=== PATIENT | female | born 1950 | race Caucasian/White ===

== ENCOUNTER → 2024-10-21 | Outpatient (CLI) | payer MEDICARE, SELFPAY ==
[2024-10-21 09:10] LABS: Collection Type, Urine Clean Catch
[2024-10-21 09:33] LABS: Basophils % (Auto) 1 % (0-2.5); Eosinophils # (Auto) 0.3 Thou/mm3 (0.0-0.5); Eosinophils % (Auto) 4 % (0-10); Hematocrit 36.7 % (36.0-46.0); Hemoglobin 11.7 g/dL (12.0-16.0); Immature Granulocytes % (Auto) 0 % (0-0); Immature Granulocytes Auto 0.02 Thou/mm3 (0.00-0.00); Lymphocytes # (Auto) 1.7 Thou/mm3 (1.0-4.8); Lymphocytes % (Auto) 24 % (10-50); Mean Corpuscular HGB Conc 31.9 g/dl (31.0-37.0); Mean Corpuscular Volume 91 fL (80-100); Monocytes # (Auto) 0.5 Thou/mm3 (0.0-0.8); Monocytes % (Auto) 8 % (0-12); Neutrophils # (Auto) 4.3 Thou/mm3 (1.8-7.7); Neutrophils % (Auto) 63 % (37-80); Nucleated Red Blood Cell % 0 /100 WBC (0); Platelet Count 226 Thou/mm3 (140-440); Red Blood Count 4.03 Miln/mm3 (4.00-5.20); White Blood Count 6.9 Thou/mm3 (3.6-11.0)
[2024-10-21 09:49] LABS: Vitamin B12 391 pg/mL (211-911); Vitamin D 25 Hydroxy Total 61.6 ng/mL (7.3-40.2)
[2024-10-21 09:56] LABS: Alanine Aminotransferase 17 U/L (10-49); Albumin, Serum 4.4 gm/dL (3.4-4.8); Alkaline Phosphatase 100 U/L (46-116); Anion Gap 9 (7-16); Aspartate Amino Transferase 15 U/L (0-34); BUN/Creatinine Ratio 30 Ratio (12-20); Bilirubin,Total 0.3 mg/dL (0.3-1.2); Blood Urea Nitrogen 33 mg/dL (9-23); Calcium 9.8 mg/dL (8.3-10.6); Calcium (Corrected) 9.8 mg/dL (8.5-10.1); Carbon Dioxide 25.7 mMol/L (20.0-31.0); Cardiac Risk Estimate 3.5 RATIO (3.7-5.6); Chloride 105 mMol/L (98-107); Cholesterol 163 mg/dL (132-200); Creatinine (Component) 1.1 mg/dL (0.6-1.3); Globulin 2.2 gm/dL (2.3-3.5); Glucose 97 mg/dL (74-106); HDL Cholesterol 47 mg/dL (40-60); LDL Cholesterol,Calculated 83 mg/dL (0-130); Osmolality,Calculated 286 (275-295); Potassium 4.6 mMol/L (3.4-5.1); Sodium 140 mMol/L (136-145); Thyroid Stimulating Hormone 3.29 uIU/mL (0.55-4.78); Total Protein 6.6 gm/dL (5.7-8.2); Triglycerides 163 mg/dL (30-150); eGFR 52 See Note
[2024-10-21 10:09] LABS: Bacteria,Urine 2+; Bilirubin,Urine Negative (Negative); Blood,Urine Negative (Negative); Clarity,Urine Clear (Clear/Hazy); Color,Urine Lt-Yellow (Lt Yel-Yel); Glucose, Urine Negative (Negative); Hyaline Casts,Urine < 1 /hpf (0-1); Ketones,Urine Negative (Negative); Leukocyte Esterase,Urine Positive (Negative); Nitrite,Urine Negative (Negative); Protein,Urine Negative (Neg - Trace); RBC,Urine 2 /hpf (0-3); Specific Gravity,Urine 1.027 (1.001-1.035); Squamous Epithelial Cell,Urine 4 /hpf (0-5); Urobilinogen,Urine Negative mg/dL (0.0-1.0); WBC,Urine 30 /hpf (0-5)
[2024-10-21 10:22] LABS: Culture Indicated,Urine Yes
== END | disposition home or self-care (01) ==
LOC: COPL 08:08
PROVIDERS: PCP Family Medicine; Referring Provider Physician Assistant; Visit Provider Physician Assistant
DX: I12.9 Hypertensive chronic kidney disease with stage 1 through stage 4 chronic kidney disease, or unspecified chronic kidney disease (principal); N18.30 Chronic kidney disease, stage 3 unspecified
CPT/HCPCS: 36415; 80053; 80061; 81001; 82306; 82607; 84443; 85025; 87077; 87086; 87186

== ENCOUNTER → 2024-10-26 | Outpatient (CLI) | payer MEDICARE, SELFPAY ==
[2024-10-29 06:52] LABS: Fecal Globin Result NOT DETECTED (NOT DETECTED)
== END | disposition home or self-care (01) ==
LOC: SLDO 11:39
PROVIDERS: PCP Physician Assistant; Referring Provider Physician Assistant; Visit Provider Physician Assistant
DX: I12.9 Hypertensive chronic kidney disease with stage 1 through stage 4 chronic kidney disease, or unspecified chronic kidney disease (principal); N18.30 Chronic kidney disease, stage 3 unspecified
CPT/HCPCS: 82274; G0328

== ENCOUNTER → 2024-12-25 | Outpatient (CLI) | payer MEDICARE, SELFPAY ==
[2024-12-25 15:57] LABS: Stool for WBCs Negative (Negative)
[2025-01-04 07:15] LABS: Fecal Globin Result NOT DETECTED (NOT DETECTED)
== END | disposition home or self-care (01) ==
LOC: SLDO 14:10
PROVIDERS: Referring Provider Physician Assistant; Visit Provider Physician Assistant
DX: R19.7 Diarrhea, unspecified (principal)
CPT/HCPCS: 82274; 87015; 87045; 87046; 87177; 87205; 87209; 87493; 87899; G0328

== ENCOUNTER → 2025-02-26 | Outpatient (CLI) | payer MEDICARE, SELFPAY ==
--- NOTE | 2025-02-26 10:00 | XR_ITS ---
Examination: Right knee 2 views Technique one AP lateral right knee 2 views Date and time: February 26, 2025 1009 hours INDICATIONS: Status post knee replacement November 2023, right knee pain joint popping 5 months FINDINGS: Total right knee arthroplasty. Satisfactory alignment. No fracture. No loosening of the prosthetic components. Small knee effusion IMPRESSION: Total right knee arthroplasty with satisfactory alignment
== END | disposition home or self-care (01) ==
PROVIDERS: PCP Physician Assistant; Referring Provider Physician Assistant; Visit Provider Physician Assistant
DX: M25.561 Pain in right knee (principal); Z96.651 Presence of right artificial knee joint
CPT/HCPCS: 73560

== ENCOUNTER → 2025-03-18 | Outpatient (CLI) | payer MEDICARE, SELFPAY ==
--- NOTE | 2025-03-18 10:08 | XR_ITS ---
Examination: Lumbar spine, 5 views Technique: Lumbar spine AP, lateral, coned lateral lower lumbar spine, bilateral obliques 5 views Exam date and time: March 18, 2025 1038 hours INDICATIONS: Lower back pain one month. FINDINGS: Prominent osteopenia. Lumbar levoscoliosis 15 degrees Diffuse advanced facet arthropathy Grade 1 listhesis L4 on L5 Advanced diffuse lumbar degenerative disc disease IMPRESSION: Advanced diffuse lumbar degenerative disc disease with spinal stenosis No acute lumbar fracture
--- NOTE | 2025-03-18 10:08 | XR_ITS ---
Examination:Right hip AP, lateral, AP pelvis 3 views Technique: Hip AP lateral, AP pelvis, 3 views Exam date and time:March 18, 2025 1038 hours INDICATIONS: Right hip pain one month. FINDINGS: Prominent osteopenia. Severe right hip osteoarthritis. Flattening and fragmentation of the right femoral head consistent with significant avascular necrosis Moderate narrowing left hip joint IMPRESSION: Advanced right hip osteoarthritis Significant avascular necrosis right femoral head.
== END | disposition home or self-care (01) ==
PROVIDERS: PCP Physician Assistant; Referring Provider Physician Assistant; Visit Provider Physician Assistant
DX: M16.11 Unilateral primary osteoarthritis, right hip (principal); M87.851 Other osteonecrosis, right femur; M51.360 Other intervertebral disc degeneration, lumbar region with discogenic back pain only; M48.061 Spinal stenosis, lumbar region without neurogenic claudication
CPT/HCPCS: 72110; 73502

== ENCOUNTER → 2025-04-03 | Outpatient (CLI) | payer MEDICARE, SELFPAY ==
--- NOTE | 2025-04-03 | XR_ITS ---
Examination: MRI lumbar spine without contrast Date and time of exam: April 03, 2025 1703 hours INDICATIONS: Low back pain radiating to the right leg 1 year Technique: Multiple MRI axial and sagittal sections lumbar spine. Sagittal T2-weighted images, TR 3500, TE 118 T1 weighted transverse sections, TR 688 T8.5, T2-weighted sagittal sections T1 weighted sagittal sections TR 621, TE 30 T2 axial sections, TR 4, 190, TE 84. Findings: Hemangiomatous change L1 No lumbar fracture Grade 1 anterolisthesis L4 on L5 Diffuse lumbar disc narrowing, advanced L1-L2, L2-L3, L4-L5, L5-S1 L5-S1 7 mm central lumbar disc bulge extending to the foraminal regions greater on the left with moderate left L5 ganglionic impression L4-L5 8 mm left paracentral subarticular foraminal disc bulge severely indenting the thecal sac on the left side and producing severe left L4 ganglionic compression L3-L4 6 mm central lumbar disc bulge L2-L3 foraminal disc bulges but no ganglionic compression L1-L2 foraminal disc bulges 6 to 8 mm with no pancreatic compression IMPRESSION: Diffuse lumbar degenerative disc disease, advanced L1-L2, L2-L3, L4-L5, L5-S1 L5-S1 7 mm central lumbar disc bulge extending to the left foramen with moderate left L5 ganglionic compression L4 L5 8 millimeter left paracentral subarticular foraminal disc bulge severely indenting the thecal sac on the left side and producing severe left L4 ganglionic compression L3-L4 6 mm central lumbar disc bulge
--- NOTE | 2025-04-03 16:00 | XR_ITS ---
Examination: MRI right hip without intravenous contrast. Date and time of exam: April 03, 2025 1425 hours INDICATIONS: Right hip pain beginning one year ago Technique: Multiple MRI images of the right hip have been obtained T1 weighted coronal sections, TR 500, TE 12 Proton density coronal fat saturated images, TR 3000, TE 71 T2-weighted coronal images, 5850, TE 104 T1-weighted axial images, TR 521, TE 12 T2-weighted axial fat suppressed images, TR 5730, TE 103. Findings: Advanced right hip osteoarthritis, marked joint space narrowing with subarticular cyst formation Serpiginous abnormal signal in the right femoral head, less than 50% of the articulating surface with subtle fragmentation consistent with avascular necrosis Moderate narrowing left hip joint There is subarticular cyst formation in the acetabular region right hip No pelvic mass Urinary bladder intact IMPRESSION: Advanced right hip osteoarthritis Avascular necrosis right femoral head
== END | disposition home or self-care (01) ==
LOC: SMRI 15:38
PROVIDERS: PCP Physician Assistant; Referring Provider Physician Assistant; Visit Provider Physician Assistant
DX: M16.11 Unilateral primary osteoarthritis, right hip (principal); M87.851 Other osteonecrosis, right femur; M51.370 Other intervertebral disc degeneration, lumbosacral region with discogenic back pain only; M51.360 Other intervertebral disc degeneration, lumbar region with discogenic back pain only; G95.20 Unspecified cord compression
CPT/HCPCS: 72148; 73721